=== PATIENT | male | born 1975 | race Caucasian/White ===

== ENCOUNTER 2017-02-02 10:19 | Emergency (ER) | payer OTHER ==
[~2017-02-02] VITALS: Ht 94 cm; Wt 99.8 kg
--- NOTE | 2017-02-02 10:38 | NUR ---
dr rodriguez at the bedside.
[2017-02-02] MEDS ORDERED: LIDOCAINE HCL 1% 20 ML VIAL TP ONE (10:45)
[2017-02-02] MEDS ORDERED: NEOMY/BACITRA/POLYMYXIN B OINT UD PACKET TP ONE ×2 (10:45→10:54)
[2017-02-02] MEDS ORDERED: TDAP DIPH,PERTUSS,TET VAC/PF 0.5 ML DISP.SYRIN IM ONE ×2 (10:45→10:54)
[2017-02-02 10:53] VITALS: BP 137/84
== END 2017-02-02 11:00 | disposition home or self-care (01) ==
LOC: ER 10:19
DX: S61.211A Laceration without foreign body of left index finger without damage to nail, initial encounter (principal); W45.8XXA Other foreign body or object entering through skin, initial encounter; Y93.89 Activity, other specified; Y99.8 Other external cause status; Y92.89 Other specified places as the place of occurrence of the external cause
CPT/HCPCS: 12001; 99283; A4663; J3490; 90715

== ENCOUNTER 2017-02-12 10:19 | Emergency (ER) | payer OTHER ==
[~2017-02-12] VITALS: Ht 177.8 cm; Wt 93.0 kg
--- NOTE | 2017-02-12 10:27 | NUR ---
Pt had cut finger with a straight razor 10 days ago, sutured, here for suture removal. 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 Did not get a tetanus shot at the time.
[2017-02-12] MEDS ORDERED: TDAP DIPH,PERTUSS,TET VAC/PF 0.5 ML DISP.SYRIN IM ONE ×2 (10:42→10:45)
--- NOTE | 2017-02-12 10:42 | NUR ---
Gave pt d/c instructions, verbalized understanding.
== END 2017-02-12 10:46 | disposition home or self-care (01) ==
LOC: ER 10:19
DX: S61.211D Laceration without foreign body of left index finger without damage to nail, subsequent encounter (principal); X58.XXXD Exposure to other specified factors, subsequent encounter; Y99.8 Other external cause status; Y92.89 Other specified places as the place of occurrence of the external cause
CPT/HCPCS: 90471; 90715; 99283; A4663